=== PATIENT | male | born 1975 | race African-American/Black ===

== ENCOUNTER 2017-05-19 02:01 | Emergency (ER) | payer BC, SELFPAY ==
[2017-05-19] MEDS ORDERED: Adacel (T-DAP) 0.5 ML VIAL ONE (03:30)
[2017-05-19] MEDS ORDERED: Ibuprofen 800 MG TAB ONE (04:14)
[2017-05-19] MEDS ORDERED: Bacitracin Zinc 1 Packet ONE (04:42)
--- NOTE | 2017-05-19 08:14 | RAD ---
2 VIEWS LEFT SMALL FINGER: Date: 05/19/17 HISTORY: Smashed left finger with hammer 3 days ago. Soft tissue injury. FINDINGS: Subcutaneous soft tissue irregularity involving the distal aspect of the left small finger suggestin g laceration related to patient's recent injury. There is no evidence of an underlying fracture and no dislocation is seen. There is small osteophyte at the volar aspect base of the middle phalanx whi ch may be attributable to prior injury. There is a tiny metallic foreign body seen overlying the sub cutaneous soft tissues between the 4th and 5th metacarpals measuring 1.0 mm, which may be related to tiny metallic foreign body. IMPRESSION: 1. Soft tissue irregularity left small finger without evidence of an acute fracture. 2. 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 3. Tiny metallic foreign body subcutaneous soft tissues between the distal aspect of the 4th and 5t h metacarpals. POS: [facility]
== END 2017-05-19 04:50 | disposition home or self-care (01) ==
LOC: ERS 02:01
DX: S69.92XA Unspecified injury of left wrist, hand and finger(s), initial encounter (principal); Z23 Encounter for immunization; W20.8XXA Other cause of strike by thrown, projected or falling object, initial encounter; Y93.89 Activity, other specified; Y92.69 Other specified industrial and construction area as the place of occurrence of the external cause; Y99.0 Civilian activity done for income or pay
CPT/HCPCS: 90471; 90715

== ENCOUNTER 2017-05-22 17:46 | Emergency (ER) | payer BC | END 2017-05-22 20:08 | disposition home or self-care (01) | LOC: ERS 17:46 | DX: S61.217D Laceration without foreign body of left little finger without damage to nail, subsequent encounter (principal); Z79.899 Other long term (current) drug therapy; W22.8XXD Striking against or struck by other objects, subsequent encounter | CPT/HCPCS: 99283 ==

== ENCOUNTER 2018-01-25 15:40 | Emergency (ER) | payer BC, SELFPAY ==
[2018-01-25] MEDS ORDERED: Lidocaine 1% w/Epinephrine 1:100K 20 ML VIAL ONE (15:59)
--- NOTE | 2018-01-25 16:03 | RAD ---
LEFT HAND THREE VIEWS: History: Left hand injury. FINDINGS: Joint spaces are preserved. No acute fracture, dislocation, or aggressive osseous erosions. Tiny meta llic density projects over the soft tissues posterior to the proximal phalanx of the thumb on all vie ws. This likely represents a small embedded metallic foreign body. IMPRESSION: Small embedded soft tissue metallic foreign body posterior to the thumb. No acute osseous abnormaliti es are demonstrated. POS: [facility]
== END 2018-01-25 17:14 | disposition home or self-care (01) ==
LOC: ERS 15:40
DX: S61.412A Laceration without foreign body of left hand, initial encounter (principal); W31.89XA Contact with other specified machinery, initial encounter
CPT/HCPCS: 12002; J2001

== ENCOUNTER 2020-11-14 08:36 | Emergency (ER) | payer OTHER, SELFPAY ==
[2020-11-14] MEDS ORDERED: Ketorolac Tromethamine 30 MG/ML VIAL ONE (08:58)
== END 2020-11-14 10:36 | disposition home or self-care (01) ==
LOC: ERS 08:36
DX: S16.1XXA Strain of muscle, fascia and tendon at neck level, initial encounter (principal); S39.012A Strain of muscle, fascia and tendon of lower back, initial encounter; V89.2XXA Person injured in unspecified motor-vehicle accident, traffic, initial encounter
CPT/HCPCS: 71046; 72100; 72125; 96372; J1885